=== PATIENT | female | born 1975 | race Caucasian/White ===

== ENCOUNTER → 2016-07-02 | Outpatient (CLI) | payer OTHER | END | disposition home or self-care (01) | LOC: RAD.S 14:27 | DX: N83.202 Unspecified ovarian cyst, left side (principal) ==

== ENCOUNTER → 2017-01-12 | Outpatient (CLI) | payer BC | END | disposition home or self-care (01) | LOC: RAD.S 14:58 | DX: R06.00 Dyspnea, unspecified (principal); K76.0 Fatty (change of) liver, not elsewhere classified; I51.7 Cardiomegaly; Z98.890 Other specified postprocedural states ==